=== PATIENT | female | born 1995 | race Caucasian/White ===

== ENCOUNTER 2019-10-26 02:56 | Outpatient (CLI) | payer OTHER ==
[2019-10-26 03:43] LABS: APPEARANCE,URINE SLIGHTLY-CLOUDY; BILIRUBIN,URINE NEGATIVE (NEGATIVE); COLOR,URINE YELLOW; GLUCOSE, URINE NEGATIVE (NEGATIVE); KETONES,URINE TRACE mg/dL (NEGATIVE); LEUKOCYTE ESTERASE,URINE TRACE (NEGATIVE); NITRITE,URINE NEGATIVE (NEGATIVE); PROTEIN,URINE NEGATIVE (NEGATIVE); URINE SPECIFIC GRAVITY 1.014; UROBILINOGEN,URINE NEGATIVE mg/dL (<2.0)
[2019-10-26 04:02] LABS: URINE AMPHETAMINES SCREEN NEGATIVE; URINE BARBITURATES SCREEN NEGATIVE; URINE BENZODIAZEPINES SCREEN NEGATIVE; URINE COCAINE SCREEN NEGATIVE; URINE MARIJUANA (THC) SCREEN NEGATIVE; URINE METHADONE SCREEN NEGATIVE; URINE PHENCYCLIDINE SCREEN NEGATIVE
[2019-10-26] MEDS ORDERED: HYDROXYZINE PAMOATE 50 MG CAPSULE PO ONE (04:31)
[2019-10-26] MEDS ORDERED: HYDROXYZINE PAMOATE 50 MG CAPSULE ONE (04:35)
--- NOTE | 2019-10-26 04:48 | Non Stress Test Report ---
Non Stress Test Datetime Report Generated by CPN: 10/26/2019 04:48 DEMOGRAPHIC EGA NST: 39.4 INDICATION Indication for Study (NST) Other: IUP @ 39.4 Labor observation VITAL SIGNS Temperature - NST: 97.2 Pulse - NST: 122 RESP - NST: 17 NBPSYS NST: 124 NBPDIA NST: 74 URINE RESULTS Urine Protein, NST: Negative Urine Ketones - NST: Positive Urine Glucose - NST: Negative Urine Blood - NST: Negative MONITORING Monitor Explained: Monitor Explained; Test Explained; Patient Verbalized Understanding Time on Monitor: 10/26/2019 03:15 Time off Monitor: 10/26/2019 03:38 NST Duration: 23 NST INTERVENTIONS NST Interventions: PO Hydration Physician Notified NST: Dr. Becerra BABY A: [id number] BABY A Movement : Present Contraction Frequency : 1.5-2.5 FHR Baseline : 135 Accelerations : 15X15 Decelerations : None Variability : Moderate 6-25bpm NST Review: Meets Criteria for Reactive NST NST Review and Verified By : Byron Gibbons RN NST Results: Reactive NST REPORT Report Trigger: Send Report
== END 2019-10-26 04:46 | disposition home or self-care (01) ==
LOC: LC 02:56
PROVIDERS: ATTEND Obstetrics & Gynecology
DX: O47.1 False labor at or after 37 completed weeks of gestation (principal); Z3A.39 39 weeks gestation of pregnancy
CPT/HCPCS: 59025; 80307; 81005

== ENCOUNTER 2019-10-26 20:36 | Inpatient (IN) | payer OTHER ==
[2019-10-26 22:05] LABS: APPEARANCE,URINE CLOUDY; BILIRUBIN,URINE NEGATIVE (NEGATIVE); COLOR,URINE YELLOW; GLUCOSE, URINE NEGATIVE (NEGATIVE); KETONES,URINE NEGATIVE (NEGATIVE); LEUKOCYTE ESTERASE,URINE SMALL (NEGATIVE); NITRITE,URINE NEGATIVE (NEGATIVE); PROTEIN,URINE 100 mg/dL (NEGATIVE); URINE SPECIFIC GRAVITY 1.016; UROBILINOGEN,URINE NEGATIVE mg/dL (<2.0)
[2019-10-26 22:28] LABS: URINE AMPHETAMINES SCREEN NEGATIVE; URINE BARBITURATES SCREEN NEGATIVE; URINE BENZODIAZEPINES SCREEN NEGATIVE; URINE COCAINE SCREEN NEGATIVE; URINE MARIJUANA (THC) SCREEN NEGATIVE; URINE METHADONE SCREEN NEGATIVE; URINE PHENCYCLIDINE SCREEN NEGATIVE
[2019-10-26 23:54] LABS: ABSOLUTE BASOPHILS # (AUTO) 0.1 10^3/uL (0.0-0.2); ABSOLUTE LYMPHOCYTES (AUTO) 1.4 10^3/uL (0.5-4.7); ABSOLUTE MONOCYTES (AUTO) 1.3 10^3/uL (0.1-1.4); ABSOLUTE NEUT (AUTO) 11.9 10^3/uL (1.7-8.2); BASOPHILS % (AUTO) 0.4 % (0-2); EOSINOPHILS % (AUTO) 0.1 % (0-6); HEMATOCRIT 36.8 % (36.0-47.0); HEMOGLOBIN 13.3 g/dL (12.0-15.5); LYMPHOCYTES % (AUTO) 9.9 % (13-45); MEAN CORPUSCULAR HGB CONC 36.2 g/dL (32.0-36.0); MEAN CORPUSCULAR VOLUME 94 fl (80-97); MONOCYTES % (AUTO) 8.7 % (3-13); PLATELET COUNT 144 10^3/uL (150-450); RED BLOOD COUNT 3.92 10^6/uL (3.72-5.28); RED CELL DISTRIBUTION WIDTH 12.8 % (11.5-14.0); SEGMENTED NEUTROPHILS % (AUTO) 80.9 % (42-78); TOTAL CELLS COUNTED % (AUTO) 100 %; WHITE BLOOD COUNT 14.7 10^3/uL (4.0-10.5)
[2019-10-27] MEDS ORDERED: OXYTOCIN/0.9 % SODIUM CHLORIDE 30 UNIT/500 ML RTUINJ ONE ×2 (00:17→12:03)
[2019-10-27] MEDS ORDERED: MISOPROSTOL 0.2 MG TABLET ONE ×2 (00:17→12:03)
[2019-10-27] MEDS ORDERED: LIDOCAINE 1% INJ-PF (10 MG/ML) 30 ML SDV ONE ×2 (00:17→12:07)
[2019-10-27] MEDS ORDERED: OXYTOCIN 10 UNIT/ML VIAL ONE ×2 (00:17→12:03)
[2019-10-27] MEDS ORDERED: RINGERS SOLUTION,LACTATED 1,000 ML IV ONE (00:30)
[2019-10-27] MEDS ORDERED: FENTANYL/BUPIVACAINE/NS/PF 300 MCG/150 ML RTUINJ EPI ONE (02:12)
[2019-10-27] MEDS ORDERED: ROPIVACAINE HCL 0.2% INJ/PF (2 MG/ML) 20 ML SDV ONE (02:12)
[2019-10-27] MEDS ORDERED: EPHEDRINE SULFATE INJ 50 MG/1 ML AMPULE ONE (02:12)
[2019-10-27] MEDS: RINGERS SOLUTION,LACTATED 1,000 ML IV PRN ×4 (02:45→08:55)
[2019-10-27] MEDS ORDERED: ROPIVACAINE HCL 0.5% INJ/PF (5 MG/1 ML) 30 ML SDV ONE (09:54)
--- NOTE | 2019-10-27 10:22 | L&D Progress Notes ---
PROGRESS NOTES Datetime Report Generated by CPN: 10/27/2019 10:22 PROGRESS NOTE Comment: Cat 1, early decels, uc's q 2-4, rim, will start pushing when complete LAST VAGINAL EXAM-NURSING Nursing Exam Dilitation: 8-9 Nursing Exam Effacement: 100 Nursing Exam Station: -1 SIGNATURE SIGNATURE: [id number];[id number] Assignment: Jennifer Lara MD Signature: with User ID: [email or web address] : with User ID: [email or web address]
[2019-10-27] MEDS ORDERED: OXYTOCIN/0.9 % SODIUM CHLORIDE 30 UNIT/500 ML RTUINJ IV PRN ×2 (10:32→13:22)
--- NOTE | 2019-10-27 12:34 | L&D Progress Notes ---
PROGRESS NOTES Datetime Report Generated by CPN: 10/27/2019 12:33 PROGRESS NOTE Impression: Normal Progression of Labor Plan: Continue Present Management Informed Consent Obtained: Vaginal Delivery; Risks, Benefits and Alternatives Discussed Comment: Upon arrival at 0800. SSE done and no HSV lesions noted. No lesions noted on perineum. Pt reports she is on prophy and has not had outbreak since 2018. LAST VAGINAL EXAM-NURSING Nursing Exam Dilitation: 10.0 Nursing Exam Effacement: 100 Nursing Exam Station: 2 SIGNATURE SIGNATURE: [id number];[id number] Assignment: Jennifer Lara MD Signature: with User ID: [email or web address] : with User ID: Coy
--- NOTE | 2019-10-27 12:38 | L&D Progress Notes ---
PROGRESS NOTES Datetime Report Generated by CPN: 10/27/2019 12:37 PROGRESS NOTE Impression: Normal Progression of Labor Plan: Continue Present Management Informed Consent Obtained: Vaginal Delivery; Risks, Benefits and Alternatives Discussed Vital Signs : Reviewed; Within Normal Limits Comment: Starting to feel more pressure, uc's q 2-4, Cat 1 strip, plan to start pushing, nurse just checked her and has a rim, unable to reduce anticipate Vag delivery LAST VAGINAL EXAM-NURSING Nursing Exam Dilitation: 10.0 Nursing Exam Effacement: 100 Nursing Exam Station: 2 FETUS A Accelerations: 15X15 Decelerations: None FHR Category: Category I SIGNATURE SIGNATURE: [id number];[id number] Assignment: Jennifer Lara MD Signature: with User ID: Ellis : with User ID: Ellis
[2019-10-27] MEDS ORDERED: DIBUCAINE 1% OINTMENT 28 GM TP PRN (13:22)
[2019-10-27] MEDS ORDERED: BENZOCAINE/MENTHOL AEROSOL SPRAY 56 ML TOP PRN (13:22)
[2019-10-27] MEDS ORDERED: ACETAMINOPHEN WITH CODEINE #3 TABLET PO PRN ×2 (13:22)
[2019-10-27] MEDS ORDERED: NA PHOS,M-B/NA PHOS,DI-BA (ADULT) 133 ML ENEMA PR PRN (13:22)
[2019-10-27] MEDS ORDERED: PROMETHAZINE HCL 25 MG TABLET PO PRN (13:22)
[2019-10-27] MEDS ORDERED: PROMETHAZINE HCL INJ 25 MG/1 ML VIAL IV PRN (13:22)
[2019-10-27] MEDS ORDERED: DIPHENHYDRAMINE HCL 25 MG CAPSULE PO PRN (13:22)
[2019-10-27] MEDS ORDERED: ZOLPIDEM TARTRATE 5 MG TABLET PO PRN (13:22)
[2019-10-27] MEDS ORDERED: GLYCERIN/WITCH HAZEL LEAF 1 EACH MED..WIPE TP PRN (13:22)
[2019-10-27] MEDS ORDERED: PROMETHAZINE HCL 25 MG SUPP.RECT PR PRN (13:22)
[2019-10-27] MEDS ORDERED: DIPH/PERTUSS(ACELL)/TETANUS VAC/PF 0.5 ML SYR (>=10YO) IM PRN (13:22)
[2019-10-27] MEDS ORDERED: MEASLES,MUMPS&RUBELLA VACC/PF 0.5 ML VIAL SUBCUT PRN (13:22)
[2019-10-27] MEDS ORDERED: ACETAMINOPHEN 325 MG TABLET PO PRN (13:22)
[2019-10-27] MEDS ORDERED: MAGNESIUM HYDROXIDE SUSP 30 ML UDCUP PO PRN (13:22)
[2019-10-27] MEDS ORDERED: PSEUDOEPHEDRINE HCL 30 MG TABLET PO PRN (13:22)
--- NOTE | 2019-10-27 14:52 | Birth Certificate Data ---
Cert Data Datetime Report Generated by CPMarni: 10/27/2019 14:52 CERTIFICATE DATA 47a. Care: Yes (10/26/2019 03:28:Donna Gibbons RN) 47b. Date of First Visit: 04/18/2019 00:00 (10/26/2019 03:28:Donna Gibbons RN) 47c. Date of Last Visit: 10/25/2019 00:00 (10/26/2019 03:28:Joelen Vega RN) 47d. Number of Visits: 10 (10/26/2019 03:28:Joleen Vega RN) 48a. Number of Prev Live Births: 0 (10/26/2019 03:28:Joleen Vega RN) 48b. Now Livin (10/26/2019 03:28:Donna Gibbons RN) 48c. Live Births Now : 0 (10/26/2019 03:28:QS system process) 48e. Losses: 0 (10/26/2019 03:28:Donna Gibbons RN) RISK FACTORS IN THIS 49a. Diabetes: No (10/26/2019 03:28:Donna Gibbons RN) 49b. Hypertension: No (10/26/2019 03:28:Donna Gibbons RN) 49c. Previous Births: 0 (10/26/2019 03:28:Donna Gibbons RN) 49d. Stillborns: No (10/26/2019 03:28:Donna Gibbons RN) 49d. IUGR: No (10/26/2019 03:28:Donna Gibbons RN) 49e. Infertility Treatment: No (10/26/2019 03:28:Donna Gibbons RN) 49f. Previous Cesareans: 0 (10/26/2019 03:28:Donna Gibbons RN) Mother's Height 50b. Height Inches: 64 (10/27/2019 14:06:QS system process) Mother's Weight 51a. Pre- Weight (lbs): 126 (10/26/2019 03:28:Donna Gibbons RN) 51b. Weight at Delivery (lbs): 152 (10/27/2019 14:06:QS system process) 52. Dt Last Normal Menses Began: 01/22/2019 00:00 (10/26/2019 03:28:Donna Gibbons RN) Infections Present/Treated 53a. Gonorrhea: No (10/26/2019 03:28:Donna Gibbons RN) Results this Hospital Visit : Negative (10/26/2019 03:28:Donna Gibbons RN) 53b. Syphilis: No (10/26/2019 03:28:Donna Gibbons RN) Results this Hospital Visit: NONREACTIVE (10/26/2019 23:26:QS system process) 53c. Chlamydia: No (10/26/2019 03:28:Donna Gibbons RN) Results this Hospital Visit: Negative (10/26/2019 03:28:Donna Gibbons RN) 53d. Hepatitis B: No (10/26/2019 03:28:Donna Gibbons RN) Results this Hospital Visit: Negative (10/26/2019 03:28:Donna Gibbons RN) 53e. Hepatitis C: Negative (10/26/2019 03:28:Donna Gibbons RN) 53h. Mother Tested for HBsAG: Yes (10/26/2019 03:28:Donna Gibbons RN) 53i. Date Tested: 04/18/2019 00:00 (10/26/2019 03:28:Donna Gibbons RN) 53j. Test Result: Negative (10/26/2019 03:28:Donna Gibbons RN) Obstetric Procedures 54a, b, c. Obstetric Procedures: Ultrasound; NST (10/26/2019 03:28:Donna Gibbons RN) Cigarette Smoking Cigarette Smoking: Never Smoker. [id number] (10/26/2019 03:28:Donna Gibbons RN) 55a. 3 Months Before Preg - Ci (10/26/2019 03:28:Donna Gibbons RN) 55b. 1st Trimester of Preg- Ci (10/26/2019 03:28:Donna Gibbons RN) 55c. 2nd Trimester of Preg- Ci (10/26/2019 03:28:Donna Gibbons RN) 55d. 3rd Trimester of Preg- Ci (10/26/2019 03:28:Donna Gibbons RN) Onset of Labor 56a. PROM >12 Hrs: 14.77 (10/26/2019 22:45:QS system process) 56b. Precipitous Labor <3 Hrs: 14 (10/26/2019 03:28:QS system process) 56c. Prolonged Labor > 20 Hrs: 14 (10/26/2019 03:28:QS system process) 57a. Induction of Labor: Augmentation (10/26/2019 03:28:Maryellen Machuca RN) 57c. Non-Vertex Presentation A: Vertex (10/26/2019 03:28:Maryellen Machuca RN) 57d. Steroids - Lung Mat: None (10/26/2019 03:28:Maryellen Machuca RN) 57d. Steroids - Lung Mat: Not Applicable (10/26/2019 03:28:Maryellen Machuca RN) 57f. Mat [place] or Temp >100.4: 99.3 (10/26/2019 03:28:Maryellen Machuca RN) 57g. Moderate/Heavy Meconium: Clear (10/26/2019 22:45:Joleen Vega RN) 57i. Epidural/Spinal Anesthesia: Epidural (10/26/2019 03:28:Maryellen Machuca RN) Method of Delivery 58a. Forceps - Unsuccessful A: N/A (10/26/2019 03:28:Maryellen Machuca RN) 58b. Vacuum - Unsuccessful A: N/A (10/26/2019 03:28:Maryellen Machuca RN) 58c. Presentation at 58c. Presentation at - A : Vertex (10/26/2019 03:28:Maryellen Machuca RN) 58c. Presentation at - A : N/A (10/26/2019 03:28:Maryellen Machuca RN) 58c. Presentation at - A : Cephalic (10/26/2019 21:14:Joleen Vega RN) Final Route and Method of Del 58d. Baby A Route/Delivery: Vaginal (10/27/2019 13:31:Maryellen Machuca RN) 58e. Trial of Labor Attempted: No (10/26/2019 03:28:Maryellen Machuca RN) 58e. Trial of Labor Attempted A: N/A (10/26/2019 03:28:Maryellen Machuca RN) 58e. Trial of Labor Attempted B: N/A (10/26/2019 03:28:Maryellen Machuca RN) Maternal Morbidity 59b. 3rd or 4th Degree Lacs: Perineal; Vaginal (10/26/2019 03:28:Maryellen Machuca RN) Birthweight Baby A: 3960 (10/26/2019 03:28:May Sven RN) 60a. Pounds : 8 (10/26/2019 03:28:QS system process) 60b. Ounces: 12 (10/26/2019 03:28:QS system process) 61. GA at Delivery Baby A: 39.5 (10/26/2019 03:28:May RENETTA Machuca) : Full Term- 39- 40.6 Weeks (10/26/2019 03:28:QS system process) 62a. 5 Minute Baby A: 9 (10/26/2019 03:28:QS system process)
--- NOTE | 2019-10-27 14:52 | Delivery Summary ---
Del Sum A-C Datetime Report Generated by CPN: 10/27/2019 14:52 DELIVERY PERSONNEL DELIVERY PERSONNEL: [id number] Nurse Can Coverer Certified:: Virginia Payan CNM Labor and Delivery Nurse:: Maryellen Machuca RN Nursery Nurse:: Mara Najera RN Nursery Nurse:: Leora Jones RN Poured Concrete Wall Technician/MACHINE RIVETER: ST [facility] Additional Personnel: : Afsaneh Osborne RN MATERNAL INFORMATION Delivery Anesthesia: Epidural Medications After Delivery: Pitocin 30 Units in 500ml NS/D5W; Cytotec 1000mcg Per Rectum/Vagina Delivery QBL: 50 Maternal Complications: None LABOR SUMMARY EDC: 10/29/2019 00:00 No. Babies in Womb: 1 Attempted: No Labor Anesthesia: Epidural LABOR INFORMATION Reason for Induction: Not Applicable Onset of Labor: 10/26/2019 22:45 Complete Dilatation: 10/27/2019 11:10 Oxytocin: Augmentation Group B Beta Strep: Negative Antibiotics # of Doses: n/a Name of Antibiotic Given: n/a Steroids Given: None Reason Steroids Not Administered: Not Applicable MEMBRANES Membranes Rupture Method: Spontaneous Rupture of Membranes: 10/26/2019 22:45 Length of Rupture (hr): 14.77 Amniotic Fluid Color: Clear Amniotic Fluid Amount: Moderate Amniotic Fluid Odor: Normal STAGES OF LABOR Stage 1 hr: 12 Stage 1 min: 25 Stage 2 hr: 2 Stage 2 min: 21 Stage 3 hr: 0 Stage 3 min: 3 Total Time in Labor hr: 14 Total Time in Labor min: 49 VAGINAL DELIVERY Episiotomy: None Laceration #1: Perineal; Vaginal Laceration Extension #1: First Degree Laceration Repair: Yes Laceration Repair Note: repair of bilateral periurethral and vaginal lac Sponge Count Correct: Yes; Vaginal Sweep Performed Sharps Count Correct: Yes BABY A INFORMATION Infant Delivery Date/Time: 10/27/2019 13:31 Method of Delivery: Vaginal Nurse Controlled Delivery: No Born in Route : No : N/A Forceps: N/A Vacuum Extraction: N/A Shoulder Dystocia : Yes SHOULDER DYSTOCIA BABY A Delivery of Head: 10/27/2019 13:30 Time Head to Delivery : 1.0 1st Intervention to Resolve: McRobert's Maneuver 2nd Intervention to Resolve: Suprapubic Pressure Verify NO Fundal Pressure: No Fundal Pressure Applied PRESENTATION/POSITION BABY A Presentation: Cephalic Cephalic Presentation: Vertex Vertex Position: Right Occipital Anterior Breech Presentation: N/A PLACENTA INFORMATION BABY A Placenta Delivery Time : 10/27/2019 13:34 Placenta Method of Delivery: Spontaneous Placenta Status: Delivered SCORES BABY A Heart Rate 1 min: >100 bpm Resp Effort 1 min: Slow, Irregular Reflex Irritability 1 min: Cough or Sneeze or Pulls Away Muscle Tone 1 min: Some Flexion of Extremities Color 1 min: Blue/Pale Resuscitation Effort 1 min: Tactile Stimulation SCORE 1 MIN: 6 Heart Rate 5 min: >100 bpm Resp Effort 5 min: Good Cry Reflex Irritability 5 min: Cough or Sneeze or Pulls Away Muscle Tone 5 min: Active Motion Color 5 min: Body [place], Extremities Blue Resuscitation Effort 5 min: Tactile Stimulation SCORE 5 MIN: 9 INFANT INFORMATION BABY A Gestational Age at Delivery: 39.5 Gestational Status: Full Term- 39- 40.6 Weeks Infant Outcome : Liveborn Condition : Stable Sex: Male IDENTIFICATION BABY A Infant Verification Date/Time: 10/27/2019 13:58 ID Band Number: [id number] Mother's Name Verified: Yes Infant RN Verifying Infant: Jesenia, RN Additional Verifying Personnel: AEdwin Osborne, RN WEIGHT/LENGTH BABY A Birthweight (gm): 3960 Infant Weight (lb): 8 Infant Weight (oz): 12 Infant Length (in): 20.50 Infant Length (cm): 52.07 CORD INFORMATION BABY A No. Cord Vessels: 3 Nuchal Cord : Around Neck x1, Loose Cord Blood Taken: Yes-For Eval (Mom's Blood Type - or O+) Infant Suction: None ASSESSMENT BABY A Skin to Skin: Yes Skin to Skin Time (min): 25 BABY B INFORMATION : N/A
[2019-10-27] MEDS ORDERED: METHYLERGONOVINE MALEATE INJ/PF 0.2 MG/1 ML AMPULE ONE (15:21)
[2019-10-27] MEDS ORDERED: METHYLERGONOVINE MALEATE INJ/PF 0.2 MG/1 ML AMPULE IM ONE (15:26)
[2019-10-27] MEDS ORDERED: IBUPROFEN 800 MG TABLET ONE (15:42)
[2019-10-27] MEDS: IBUPROFEN 800 MG TABLET PO SCH ×2 (15:43→21:43)
[2019-10-27 16:58] LABS: HEMATOCRIT 36.9 % (36.0-47.0); MEAN CORPUSCULAR HEMOGLOBIN 33.4 pg (27.0-33.4); MEAN CORPUSCULAR HGB CONC 35.3 g/dL (32.0-36.0); MEAN CORPUSCULAR VOLUME 95 fl (80-97); PLATELET COUNT 126 10^3/uL (150-450); RED CELL DISTRIBUTION WIDTH 13.1 % (11.5-14.0); WHITE BLOOD COUNT 18.6 10^3/uL (4.0-10.5)
[2019-10-27] MEDS: DOCUSATE SODIUM 100 MG CAPSULE PO SCH (18:35)
[2019-10-27] MEDS: FERROUS SULFATE 325 MG TABLET PO SCH (18:36)
[2019-10-27] MEDS: FAMOTIDINE 20 MG TABLET PO SCH (21:42)
[2019-10-28] MEDS: IBUPROFEN 800 MG TABLET PO SCH ×3 (05:04→22:08)
[2019-10-28 08:09] LABS: HEMATOCRIT 33.3 % (36.0-47.0); MEAN CORPUSCULAR HEMOGLOBIN 33.9 pg (27.0-33.4); MEAN CORPUSCULAR HGB CONC 36.1 g/dL (32.0-36.0); MEAN CORPUSCULAR VOLUME 94 fl (80-97); PLATELET COUNT 118 10^3/uL (150-450); RED BLOOD COUNT 3.54 10^6/uL (3.72-5.28); RED CELL DISTRIBUTION WIDTH 13.2 % (11.5-14.0); WHITE BLOOD COUNT 13.3 10^3/uL (4.0-10.5)
[2019-10-28] MEDS: PRENATAL VITAMIN W DHA CAPSULE PO SCH (09:50)
[2019-10-28] MEDS: DOCUSATE SODIUM 100 MG CAPSULE PO SCH ×2 (09:50→18:08)
[2019-10-28] MEDS: FERROUS SULFATE 325 MG TABLET PO SCH ×2 (09:50→18:08)
[2019-10-28] MEDS: SENNOSIDES/DOCUSATE 8.6-50 MG 1 EACH TABLET PO SCH (09:50)
[2019-10-28] MEDS: FAMOTIDINE 20 MG TABLET PO SCH ×2 (09:50→22:08)
--- NOTE | 2019-10-28 09:59 | PDOC PROGRESS REPORT ---
Subjective-OB Progress Note for:: 10/28/19 Subjective: sleeping on rounds, up most of the night with baby, hsb in room, bleeding under control, perez in place and uncomfortable, bottle and breast feeding Physical Exam (OB) Vital Signs: Temp Pulse Resp BP Pulse Ox 97.6 F 98 18 127/86 H 98 10/28/19 07:20 10/28/19 07:20 10/28/19 07:20 10/28/19 07:20 10/28/19 07:20 Intake & Output 10/27/19 10/28/19 10/29/19 06:59 06:59 06:59 Intake Total 1000 2036 1000 Output Total 1600 Balance 7841 516 7020 Weight 68.6 kg - PIH/Pre-Eclampsia Headache: Absent Epigastric Pain: No Visual Changes: No - Maternal Morbidity 59. Maternal Morbidity (serious complications experinced by the mother associated with labor and delivery: None of the above - Lochia Lochia Amount: Small 10-25 ml Lochia Color: Rubra/Red - Abdomen Description: Tender, Soft, Round Hernia Present: No Fundal Description: Firm, Midline Fundal Height: u/u - u/2 Objective-Diagnostic Laboratory: 10/28/19 07:50 10/27/19 10/28/19 16:18 07:50 WBC 18.6 H 13.3 H RBC 3.90 3.54 L Hgb 13.0 12.0 Hct 36.9 33.3 L MCV 95 94 MCH 33.4 33.9 H MCHC 35.3 36.1 H RDW 13.1 13.2 Plt Count 126 L 118 L Assessment and Plan(PN) - Assessment and Plan (1) Obstetric labial laceration, delivered, current hospitalization Is this a current diagnosis for this admission?: Yes (2) Shoulder (girdle) dystocia during labor and deliver, delivered Is this a current diagnosis for this admission?: Yes (3) Spontaneous rupture of amniotic membranes Is this a current diagnosis for this admission?: Yes - Time Spent with Patient Time with patient: Less than 15 minutes Medications reviewed and adjusted accordingly: Yes - Disposition Anticipated Discharge Disposition: Home, Self Care Anticipated Discharge Timeframe: within 24 hours
[2019-10-29] MEDS: IBUPROFEN 800 MG TABLET PO SCH ×2 (05:48→15:48)
[2019-10-29] MEDS: DOCUSATE SODIUM 100 MG CAPSULE PO SCH (09:05)
[2019-10-29] MEDS: FAMOTIDINE 20 MG TABLET PO SCH (09:06)
[2019-10-29] MEDS: SENNOSIDES/DOCUSATE 8.6-50 MG 1 EACH TABLET PO SCH (09:06)
[2019-10-29] MEDS: FERROUS SULFATE 325 MG TABLET PO SCH (09:06)
[2019-10-29] MEDS: PRENATAL VITAMIN W DHA CAPSULE PO SCH (09:06)
--- NOTE | 2019-10-29 09:48 | PDOC PROGRESS REPORT ---
Subjective-OB Progress Note for:: 10/29/19 Subjective: Doing well, ready to go home, scant bleeding, voiding, eating Physical Exam (OB) Vital Signs: Temp Pulse Resp BP Pulse Ox 98.2 F 98 18 122/82 97 10/29/19 09:09 10/29/19 07:03 10/29/19 07:03 10/29/19 07:03 10/29/19 07:03 Intake & Output 10/28/19 10/29/19 10/30/19 06:59 06:59 06:59 Intake Total 2036 1200 Output Total 1600 500 Balance 436 700 - PIH/Pre-Eclampsia Headache: Absent Epigastric Pain: No Visual Changes: No - Maternal Morbidity 59. Maternal Morbidity (serious complications experinced by the mother associated with labor and delivery: None of the above - Lochia Lochia Amount: Scant < 10 ml Lochia Color: Rubra/Red - Abdomen Description: Soft Hernia Present: No Fundal Description: Firm, Midline Fundal Height: u/u - u/2 Objective-Diagnostic Laboratory: 10/28/19 07:50 Assessment and Plan(PN) - Assessment and Plan (1) Obstetric labial laceration, delivered, current hospitalization Is this a current diagnosis for this admission?: Yes (2) Shoulder (girdle) dystocia during labor and deliver, delivered Is this a current diagnosis for this admission?: Yes (3) Spontaneous rupture of amniotic membranes Is this a current diagnosis for this admission?: Yes - Time Spent with Patient Time with patient: Less than 15 minutes Medications reviewed and adjusted accordingly: Yes - Disposition Anticipated Discharge Disposition: Home, Self Care Anticipated Discharge Timeframe: within 24 hours
--- NOTE | 2019-10-29 09:54 | PDOC DISCHARGE SUMMARY ---
Impression - Admit/DC Date/PCP Admission Date/Primary Care Provider: 10/26/19 23:16 MARCUS JOSE MD Discharge Date: 10/29/19 - Discharge Diagnosis (1) Obstetric labial laceration, delivered, current hospitalization Is this a current diagnosis for this admission?: Yes (2) Shoulder (girdle) dystocia during labor and deliver, delivered Is this a current diagnosis for this admission?: Yes (3) Spontaneous rupture of amniotic membranes Is this a current diagnosis for this admission?: Yes - Additional Information Resuscitation Status: Full Code Discharge Diet: As Tolerated, Regular Discharge Activity: Balance Activity w/Rest Referrals: MARCUS JOSE MD [Primary Care Provider] - (wha 4 weeks) Home Medications: Prenat 115/Iron Fum/Folic/Dss [ 19 Tablet] 1 tab PO DAILY 10/26/19 Valacyclovir HCl [Valtrex 500 mg Tablet] 500 mg PO DAILY 10/26/19 HPI Gestational Age: 39.2 Reason(s) for Admission: PROM Procedures: NST, Ultrasound Intrapartum Procedure(s): Spontaneous Vaginal Delivery Intrapartum Procedure Note: shoulder dystocia Complication(s): Laceration-Vaginal, Laceration-Periurethral Laceration-Degree: 1st Hospital Course Hospital Course: routine 59. Maternal Morbidity (serious complications experinced by the mother associated with labor and delivery: None of the above Results Laboratory Results: WBC 13.3 10^3/uL (4.0-10.5) H 10/28/19 07:50 RBC 3.54 10^6/uL (3.72-5.28) L 10/28/19 07:50 Hgb 12.0 g/dL (12.0-15.5) 10/28/19 07:50 Hct 33.3 % (36.0-47.0) L 10/28/19 07:50 MCV 94 fl (80-97) 10/28/19 07:50 MCH 33.9 pg (27.0-33.4) H 10/28/19 07:50 MCHC 36.1 g/dL (32.0-36.0) H 10/28/19 07:50 RDW 13.2 % (11.5-14.0) 10/28/19 07:50 Plt Count 118 10^3/uL (150-450) L 10/28/19 07:50 Lymph % (Auto) 9.9 % (13-45) L 10/26/19 23:26 Routt % (Auto) 8.7 % (3-13) 10/26/19 23:26 Eos % (Auto) 0.1 % (0-6) 10/26/19 23:26 Baso % (Auto) 0.4 % (0-2) 10/26/19 23:26 Absolute Neuts (auto) 11.9 10^3/uL (1.7-8.2) H 10/26/19 23:26 Absolute Lymphs (auto) 1.4 10^3/uL (0.5-4.7) 10/26/19 23:26 Absolute Monos (auto) 1.3 10^3/uL (0.1-1.4) 10/26/19 23:26 Absolute Eos (auto) 0.0 10^3/uL (0.0-0.6) 10/26/19 23:26 Absolute Basos (auto) 0.1 10^3/uL (0.0-0.2) 10/26/19 23:26 Seg Neutrophils % 80.9 % (42-78) H 10/26/19 23:26 Urine Color YELLOW 10/26/19 20:45 Urine Appearance CLOUDY 10/26/19 20:45 Urine pH 5.0 (5.0-9.0) 10/26/19 20:45 Ur Specific [place] 1.016 10/26/19 20:45 Urine Protein 100 mg/dL (NEGATIVE) H 10/26/19 20:45 Urine Glucose (UA) NEGATIVE mg/dL (NEGATIVE) 10/26/19 20:45 Urine Ketones NEGATIVE mg/dL (NEGATIVE) 10/26/19 20:45 Urine Blood LARGE (NEGATIVE) H 10/26/19 20:45 Urine Nitrite NEGATIVE (NEGATIVE) 10/26/19 20:45 Urine Bilirubin NEGATIVE (NEGATIVE) 10/26/19 20:45 Urine Urobilinogen NEGATIVE mg/dL (<2.0) 10/26/19 20:45 Ur Leukocyte Esterase SMALL (NEGATIVE) H 10/26/19 20:45 Urine Ascorbic Acid 20 (NEGATIVE) H 10/26/19 20:45 Urine Opiates Screen NEGATIVE 10/26/19 20:45 Urine Methadone Screen NEGATIVE 10/26/19 20:45 Ur Barbiturates Screen NEGATIVE 10/26/19 20:45 Ur Phencyclidine Scrn NEGATIVE 10/26/19 20:45 Ur Amphetamines Screen NEGATIVE 10/26/19 20:45 U Benzodiazepines Scrn NEGATIVE 10/26/19 20:45 Urine Cocaine Screen NEGATIVE 10/26/19 20:45 U Marijuana (THC) Screen NEGATIVE 10/26/19 20:45 RPR NONREACTIVE (NONREACTIVE) 10/26/19 23:26 Blood Type O POSITIVE 10/26/19 23:26 Antibody Screen NEGATIVE 10/26/19 23:26 Plan Health Concerns: routine Plan of Treatment: discharge home, take PNV's, rev S&S to report Goals: no complications Time Spent: Less than 30 Minutes
[2019-10-29 11:31] VITALS: BP 124/88
--- NOTE | 2019-11-08 10:26 | Admission Physical ---
Datetime Report Generated by CPN: 11/08/2019 10:26 CURRENT ADMISSION Chief Complaint: Uterine Contractions Indication for Induction: Post Dates Admit Impression : Term, Intrauterine Admit Plan: Admit to Unit; Initiate Labor Protocol ALLERGIES Medication Allergies: No Medication Allergies: No Known Allergies (10/26/2019) Latex: No Latex Allergies Food Allergies: none Environmental Allergies: none OBSTETRICAL HISTORY EDC: 10/29/2019 00:00 : 1 Para: 0 Term: 0 : 0 SAB: 0 IAB: 0 Ectopic: 0 Livin Cesareans: 0 Multiple Births: 0 Gestational Diabetes: No Rh Sensitization: No Incompetent Cervix: No ABDULLAHI: No Infertility: No ART Treatment: No Uterine Anomaly: No IUGR: No Hx Previous C/S: No Macrosomia: No Hx Loss/Stillborn: No PIH: No Hx : No Placenta Previa/Abruption: No Depression/PP Depression: No PTL/PROM: No Post Hemorrhage: No Current Procedures: Ultrasound; NST Obstetrical History Comments: G1- Current SEE RECORDS Alcohol: No Marijuana : No Cocaine: No Other Illicit Drugs: No Cigarettes: Never Smoker. [id number] MEDICAL HISTORY Diabetes: No Blood Transfusion: No Pulmonary Disease (Asthma, TB): No Breast Disease: No Hypertension: No Technical Rep Surgery: No Heart Disease: No Hosp/Surgery: No Autoimmune Disorder: No Anesthetic Complications: No Kidney Disease: No Abnormal Pap Smear: No Neuro/Epilepsy: No Psychiatric Disorders: No Other Medical Diseases: No Hepatitis/Liver Disease: No Significant Family History: No Varicosities/Phlebitis: No Trauma/Violence : No Thyroid Dysfunction: No INFECTIOUS HISTORY Gonorrhea: No Genital Herpes: Yes Chlamydia: No Tuberculosis: No Syphilis: No Hepatitis: No HIV/AIDS Exposure: No Rash or Viral Illness: No HPV: No Infectious History Comments: HSV on Valtrex since 36 weeks. Last outbreak sometime in 2018. PHYSICAL EXAM General: Normal HEENT: Normal Neurologic: Normal Thyroid: Normal Heart: Normal Lungs: Normal Breast: Deferred Back: Normal Abdomen: Normal Genitourinary Exam: Normal Extremities: Normal DTRs: Normal Pelvic Type: Adequate FETUS A EGA: 39.4 PLANS FOR LABOR AND DELIVERY Labor and Delivery: None Pain Management: Epidural Feeding Preference: Both Benefit of Breast Feed Discussed: Yes Circumcision: Yes INFORMED CONSENT Informed Consent Obtained: Vaginal Delivery; Risks, Benefits and Alternatives Discussed Signature: with User ID: [email or web address]
== END 2019-10-29 18:00 | disposition home or self-care (01) | DRG 806 ==
LOC: LC 20:36 → LR 23:16 → 2S 10-27 16:59
PROVIDERS: ADMIT Obstetrics & Gynecology Gynecology; ATTEND Obstetrics & Gynecology Gynecology
PROC: 10E0XZZ Delivery of Products of Conception, External Approach (ICD-10-PCS; principal; 2019-10-27)
PROC: 0HQ9XZZ Repair Perineum Skin, External Approach (ICD-10-PCS; 2019-10-27)
PROC: 0UQMXZZ Repair Vulva, External Approach (ICD-10-PCS; 2019-10-27)
PROC: 0UQMXZZ Repair Vulva, External Approach (ICD-10-PCS; 2019-10-27)
DX: O66.0 Obstructed labor due to shoulder dystocia (principal); O98.32 Other infections with a predominantly sexual mode of transmission complicating childbirth; Z37.0 Single live birth; O70.0 First degree perineal laceration during delivery; A60.00 Herpesviral infection of urogenital system, unspecified; O69.81X0 Labor and delivery complicated by cord around neck, without compression, not applicable or unspecified; Z3A.39 39 weeks gestation of pregnancy; Z79.899 Other long term (current) drug therapy; O76 Abnormality in fetal heart rate and rhythm complicating labor and delivery; O71.82 Other specified trauma to perineum and vulva
CPT/HCPCS: 1967; 36415; 80307; 81005; 85025; 85027; 86592; 86850; 86900; 86901; J2210; J2590; J2795; J3010; J3490